=== PATIENT | female | born 1985 | race African-American/Black ===

== ENCOUNTER 2017-03-27 22:23 | Emergency (ER) | payer OTHER ==
[2017-03-27] MEDS ORDERED: Metoprolol Tartrate TAB* 25 MG PO ONE (23:02)
[2017-03-27 23:28] LABS: Hematocrit 41 % (35-47); Hemoglobin 13.9 g/dl (12.0-16.0); Mean Corpuscular HGB Conc 34 g/dl (31-36); Mean Corpuscular Hemoglobin 32 pg (27-31); Mean Corpuscular Volume 94 fL (80-97); Mean Platelet Volume 8 um3 (7.4-10.4); Red Blood Count 4.33 10^6/ul (4.0-5.4); Red Cell Distribution Width 13 % (10.5-15); White Blood Count 8.7 10^3/ul (3.5-10.8)
--- NOTE | 2017-03-27 23:37 | ED ---
Jefe Fitzgerald Rebecca, scribed for Fer Calix MD on 03/27/17 at 2248 . Hypertension - HPI Summary HPI Summary: Pt is a 31 y/o F who presents to ED c/o HTN. Pt reports she is on medication and has been unable to take her Metoprolol for 3 days because when she went to pick it up, it was not filled. Confirms she has been taking her losartan with hydrochlorothiazide. Additionally c/o palpitations, reporting that her "heart con't calm down." Metoprolol dose is 25 mg. PMHx HTN and anxiety. - History of Current Complaint Chief Complaint: EDGeneral Stated Complaint: HIGH BLOOD PRESSURE Time Seen by Provider: 03/27/17 22:40 Hx Obtained From: Patient Onset/Duration: Still Present Aggravating Factor(s): Nothing Alleviating Factor(s): Nothing Associated Signs & Symptoms: Other: - Palpitations - Allergies/Home Medications Allergies/Adverse Reactions: Allergies Allergy/AdvReac Type Severity Reaction Status Date / Time Meperidine [From Demerol HCl] Allergy GI Upset Verified 03/27/17 22:32 PMH/Surg Hx/FS Hx/Imm Hx Cardiovascular History: Reports: Hx Hypertension Psychiatric History: Reports: Hx Anxiety Infectious Disease History: No Infectious Disease History: Denies: Traveled Outside the [place] in Last 30 Days - Family History Known Family History: Positive: Hypertension - mother - Social History Lives: With Family Substance Use Type: Reports: None Smoking Status (MU): Light Every Day Tobacco Smoker - 2 cigarettes per day Review of Systems Positive: Other - HTN Positive: Palpitations All Other Systems Reviewed And Are Negative: Yes Physical Exam Triage Information Reviewed: Yes Vital Signs On Initial Exam: Initial Vitals Temp Pulse Resp BP Pulse Ox 97 F 75 16 164/99 99 03/27/17 22:36 03/27/17 22:36 03/27/17 22:36 03/27/17 22:36 03/27/17 22:36 Vital Signs Reviewed: Yes Appearance: Positive: Well-Appearing, No Pain Distress Skin: Positive: Warm Head/Face: Positive: Normal Head/Face Inspection Eyes: Positive: LUPE ENT: Positive: Hearing grossly normal Neck: Positive: Supple Respiratory/Lung Sounds: Positive: Clear to Auscultation, Breath Sounds Present Cardiovascular: Positive: RRR Abdomen Description: Positive: Nontender, Soft Bowel Sounds: Positive: Present Musculoskeletal: Positive: Strength/ROM Intact Neurological: Positive: Alert, Oriented to Person Place, Time, Normal Gait Diagnostics - Vital Signs Vital Signs Temp Pulse Resp BP Pulse Ox 03/27/17 22:36 97 F 75 16 164/99 99 - Laboratory Result Diagrams: 03/27/17 23:16 03/27/17 23:16 Lab Statement: Any lab studies that have been ordered have been reviewed, and results considered in the medical decision making process. Re-Evaluation - Re-Evaluation First Eval Re-Evaluation Time: 00:43 Change: Improved Comment: Discussed D/C plan with the pt. Hypertension Course/Dx - Course Assessment/Plan: Pt is a 31 y/o F who presents to ED c/o HTN. Pt reports she is on medication and has been unable to take her Metoprolol for 3 days because when she went to pick it up, it was not filled. Confirms she has been taking her losartan with hydrochlorothiazide. Additionally c/o palpitations, reporting that her "heart con't calm down." Metoprolol dose is 25 mg. PMHx HTN and anxiety. In the ED course, pt was given Metoprolol which improved sx. Pt will be D/C to home with Dx of Metoprolol and a follow up with her PCP. She understands and agrees. Elevated BP noted and advised to f/u with PCP. - Diagnoses Provider Diagnoses: Hypertension Discharge - Discharge Plan Condition: Improved Disposition: HOME Patient Education Materials: Hypertension (ED) Referrals: [facility] [place] PHYSICIAN REFERRAL [Outside] - 3 Days The documentation as recorded by the Jefe palma Rebecca accurately reflects the service I personally performed and the decisions made by me, Fer Calix MD.
[2017-03-27 23:39] LABS: Albumin 4.5 g/dL (3.2-5.2); Calcium 9.7 mg/dL (8.6-10.3); EGFR Non-African American 86.3 (>60); Globulin 2.7 g/dL (2-4); Magnesium 1.9 mg/dL (1.9-2.7); Potassium 3.5 mmol/L (3.5-5.0); Total Bilirubin 0.9 mg/dL (0.2-1.0); Total Protein 7.2 g/dL (6.4-8.9)
[2017-03-28 00:37] VITALS: BP 121/92
== END 2017-03-28 00:55 | disposition home or self-care (01) ==
LOC: ED 22:23
DX: I10 Essential (primary) hypertension (principal); R00.2 Palpitations; F17.210 Nicotine dependence, cigarettes, uncomplicated
CPT/HCPCS: 36415; 80053; 83735; 85025; 99282